=== PATIENT | female | born 1985 | race Caucasian/White ===

== ENCOUNTER 2018-09-14 18:51 | Emergency (ER) | payer OTHER ==
[2018-09-14 20:11] LABS: Urine Blood 1+ (NEG); Urine Glucose NEGATIVE (NEG); Urine Protein 1+ (NEG); Urine Specific Gravity >1.030 (1.005-1.030)
--- NOTE | 2018-09-14 20:40 | EDPHYS ---
Physician Documentation [facility] Name: Obinna Villarreal Age: 32 yrs Sex: Female : 1985 Arrival Date: 09/14/2018 Time: 18:52 Bed 17 Private MD: Kishan De La Cruz ED Physician Cesar Rutledge HPI: 09/14 20:37 This 32 yrs old Female presents to ER via Ambulatory with complaints of roel Nausea/Vomiting, BODY ACHES. 20:37 The patient presents to the emergency department with nausea, vomiting. Onset: The roel symptoms/episode began/occurred 3 day(s) ago. Possible causes: unknown. The symptoms are aggravated by nothing. The symptoms are alleviated by nothing. Associated signs and symptoms: Pertinent positives: anorexia, nausea, vomiting. Severity of symptoms: At their worst the symptoms were mild moderate in the emergency department the symptoms are unchanged. The patient has not experienced similar symptoms in the past. 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 - Social history:: Smoking status: unknown. - Ebola Screening: : No symptoms or risks identified at this time. ROS: 20:37 Constitutional: Negative for fever, chills, and weight loss, Eyes: Negative for injury, roel pain, redness, and discharge, ENT: Negative for injury, pain, and discharge, Neck: Negative for injury, pain, and swelling, Cardiovascular: Negative for chest pain, palpitations, and edema, Respiratory: Negative for shortness of breath, cough, wheezing, and pleuritic chest pain, Back: Negative for injury and pain, : Negative for injury, bleeding, discharge, and swelling, MS/Extremity: Negative for injury and deformity, Skin: Negative for injury, rash, and discoloration, Neuro: Negative for headache, weakness, numbness, tingling, and seizure, Psych: Negative for depression, anxiety, suicide ideation, homicidal ideation, and hallucinations, Allergy/Immunology: Negative for hives, rash, and allergies, Endocrine: Negative for neck swelling, polydipsia, polyuria, polyphagia, and marked weight changes, Hematologic/Lymphatic: Negative for swollen nodes, abnormal bleeding, and unusual bruising. 20:37 Abdomen/GI: Positive for nausea and vomiting. Exam: 20:37 Constitutional: This is a well developed, well nourished patient who is awake, alert, roel and in no acute distress. Head/Face: Normocephalic, atraumatic. Eyes: Pupils equal round and reactive to light, extra-ocular motions intact. Lids and lashes normal. Conjunctiva and sclera are non-icteric and not injected. Cornea within normal limits. Periorbital areas with no swelling, redness, or edema. ENT: Nares patent. No nasal discharge, no septal abnormalities noted. Tympanic membranes are normal and external auditory canals are clear. Oropharynx with no redness, swelling, or masses, exudates, or evidence of obstruction, uvula midline. Mucous membranes moist. Neck: Trachea midline, no thyromegaly or masses palpated, and no cervical lymphadenopathy. Supple, full range of motion without nuchal rigidity, or vertebral point tenderness. No Meningismus. Chest/axilla: Normal chest wall appearance and motion. Nontender with no deformity. No lesions are appreciated. Cardiovascular: Regular rate and rhythm with a normal S1 and S2. No gallops, murmurs, or rubs. Normal PMI, no JVD. No pulse deficits. Respiratory: Lungs have equal breath sounds bilaterally, clear to auscultation and percussion. No rales, rhonchi or wheezes noted. No increased work of breathing, no retractions or nasal flaring. Abdomen/GI: Soft, non-tender, with normal bowel sounds. No distension or tympany. No guarding or rebound. No evidence of tenderness throughout. Back: No spinal tenderness. No costovertebral tenderness. Full range of motion. Skin: Warm, dry with normal turgor. Normal color with no rashes, no lesions, and no evidence of cellulitis. MS/ Extremity: Pulses equal, no cyanosis. Neurovascular intact. Full, normal range of motion. Neuro: Awake and alert, GCS 15, oriented to person, place, time, and situation. Cranial nerves II-XII grossly intact. Motor strength 5/5 in all extremities. Sensory grossly intact. Cerebellar exam normal. Normal gait. Psych: Awake, alert, with orientation to person, place and time. Behavior, mood, and affect are within normal limits. Vital Signs: 18:58 BP 132 / 97; Pulse 101; Resp 18; Temp 99(O); Pulse Ox 100% ; Weight 72.57 kg; Height 5 sv ft. 6 in. (167.64 cm); Pain 6/10; 20:30 BP 143 / 99; Pulse 98; Resp 20 S; Pulse Ox 99% on R/A; cc3 18:58 Body Mass Index 25.82 (72.57 kg, 167.64 cm) sv MDM: 19:07 Patient medically screened. [facility] 20:38 Data reviewed: vital signs, nurses notes, lab test result(s), Flu: negative urinalysis. [facility] 09/14 19:09 Order name: Flu [facility] 09/14 19:10 Order name: Influenza Screen (A ; Complete Time: 20:12 [facility] 09/14 19:35 Order name: Urine Dipstick--Ancillary (enter results) [facility] 09/14 19:35 Order name: Urine --Ancillary (enter results); Complete Time: 20:12 [facility] 09/14 19:09 Order name: Urine Dipstick-Ancillary (obtain specimen); Complete Time: 19:31 [facility] 09/14 19:09 Order name: Urine Test (obtain specimen); Complete Time: 19:31 [facility] Administered Medications: 20:50 Drug: Zofran 4 mg Route: PO; cc3 21:00 Follow up: Response: No adverse reaction cc3 20:50 Drug: Motrin 600 mg Route: PO; cc3 21:00 Follow up: Response: No adverse reaction 3 20:52 Drug: Tamiflu 75 mg Route: PO; cc3 21:00 Follow up: Response: No adverse reaction 3 Disposition: 09/14/18 20:40 Discharged to Home. Impression: Vomiting, Malaise and fatigue. - Condition is Stable. - Discharge Instructions: Nausea and Vomiting, Adult, Weakness, Nausea and Vomiting, Adult, [id number], Weakness, [id number]. - Prescriptions for Zofran 4 mg Oral Tablet - take 1 tablet by ORAL route every 12 hours As needed; 20 tablet. Tamiflu 75 mg Oral Capsule - take 1 tablet by ORAL route every 12 hours for 5 days; 10 tablet. - Medication Reconciliation Form, Thank You Letter, Antibiotic Education, Prescription Opioid Use, Work release form form. - Follow up: Kishan De La Cruz MD; When: 2 - 3 days; Reason: Recheck today's complaints, Continuance of care, Re-evaluation by your physician. - Problem is new. - Symptoms have improved. Signatures: Dispatcher [employer] Светлана Dave RN RN Cesar Mcgraw MD MD cha Cordel, Charlene cc3 Corrections: (The following items were deleted from the chart) 21:03 20:40 09/14/2018 20:40 Discharged to Home. Impression: Vomiting; Malaise and fatigue. cc3 Condition is Stable. Forms are Medication Reconciliation Form, Thank You Letter, Antibiotic Education, Prescription Opioid Use. Follow up: Kishan De La Cruz; When: 2 - 3 days; Reason: Recheck today's complaints, Continuance of care, Re-evaluation by your physician. Problem is new. Symptoms have improved. roel
--- NOTE | 2018-09-14 20:40 | ER ---
Nurse's Notes [facility] Name: Obinna Villarreal Age: 32 yrs Sex: Female : 1985 Arrival Date: 09/14/2018 Time: 18:52 Bed 17 Private MD: Kishan De La Cruz Diagnosis: Vomiting;Malaise and fatigue Presentation: 09/14 18:56 Presenting complaint: Patient states: nausea, carmen hip pain, back/neck/shoulder pain sv since this morning. Transition of care: patient was not received from another setting of care. Onset of symptoms was September 14, 2018. Care prior to arrival: None. 18:56 Method Of Arrival: Ambulatory sv 18:56 Acuity: HASEEB 3 sv 19:05 Risk Assessment: Do you want to hurt yourself or someone else? Patient reports no cc3 desire to harm self or others. Initial Sepsis Screen: Does the patient meet any 2 criteria? No. Patient's initial sepsis screen is negative. Does the patient have a suspected source of infection? No. Patient's initial sepsis screen is negative. Triage Assessment: 19:00 General: Appears in no apparent distress. uncomfortable, well developed, Behavior is sv calm, cooperative. Neuro: Level of Consciousness is awake, alert, obeys commands, Oriented to person, place, time, situation, Moves all extremities. Full function Gait is steady. Respiratory: Respiratory effort is even, unlabored, Respiratory pattern is regular, symmetrical. GI: Reports intolerance of fluids, intolerance of food, nausea, vomiting. 19:05 Pain: Complains of pain in generalized acute body pains. 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 - Social history:: Smoking status: unknown. - Ebola Screening: : No symptoms or risks identified at this time. Screenin:05 Abuse screen: Denies threats or abuse. Denies injuries from another. Nutritional cc3 screening: No deficits noted. Tuberculosis screening: No symptoms or risk factors identified. Fall Risk Ambulatory Aid- None/Bed Rest/Nurse Assist (0 pts). Gait- Normal/Bed Rest/Wheelchair (0 pts) Mental Status- Oriented to own ability (0 pts). Assessment: 20:15 Reassessment: Patient appears in no apparent distress at this time. Patient and/or cc3 family updated on plan of care and expected duration. Pain level reassessed. Patient is alert, oriented x 3, equal unlabored respirations, skin warm/dry/pink. 21:00 Reassessment: Patient appears in no apparent distress at this time. Patient and/or cc3 family updated on plan of care and expected duration. Pain level reassessed. Patient is alert, oriented x 3, equal unlabored respirations, skin warm/dry/pink. Dr. Rutledge discharged the patient home with prescription given. No IV cannula in situ. Patient left ER vitally stable and ambulatory with her . Vital Signs: 18:58 BP 132 / 97; Pulse 101; Resp 18; Temp 99(O); Pulse Ox 100% ; Weight 72.57 kg; Height 5 sv ft. 6 in. (167.64 cm); Pain 6/10; 20:30 BP 143 / 99; Pulse 98; Resp 20 S; Pulse Ox 99% on R/A; cc3 18:58 Body Mass Index 25.82 (72.57 kg, 167.64 cm) sv ED Course: 18:52 Patient arrived in ED. sb2 18:53 Kishan De La Cruz MD is Private Physician. sb2 18:57 Triage completed. sv 19:00 Arm band placed on. sv 19:03 Jesscia Salguero is Primary Nurse. cc3 19:05 Patient has correct armband on for positive identification. Bed in low position. Call cc3 light in reach. Side rails up X 1. Pulse ox on. NIBP on. 19:07 Cesar Rutledge MD is Attending Physician. roel 19:31 Urine collected: clean catch specimen, carlin colored, Flu and/or RSV swab sent to lab. cb2 20:39 Kishan De La Cruz MD is Referral Physician. roel 21:00 No provider procedures requiring assistance completed. Patient did not have IV access cc3 during this emergency room visit. Administered Medications: 20:50 Drug: Zofran 4 mg Route: PO; cc3 21:00 Follow up: Response: No adverse reaction cc3 20:50 Drug: Motrin 600 mg Route: PO; cc3 21:00 Follow up: Response: No adverse reaction cc3 20:52 Drug: Tamiflu 75 mg Route: PO; cc3 21:00 Follow up: Response: No adverse reaction cc3 Outcome: 20:40 Discharge ordered by . roel 21:00 Discharged to home ambulatory, with family. cc3 21:00 Condition: stable 21:00 Discharge instructions given to patient, family, Instructed on discharge instructions, follow up and referral plans. medication usage, Demonstrated understanding of instructions, follow-up care, medications, Prescriptions given X 2. 21:03 Patient left the ED. cc3 Signatures: Светлана Pereyra, YASMANY RN Cesar Mcgraw MD MD cha Bulan, Christian cb2 Billeau, Sheri sb2 Cordel, Charlene cc3
[2018-09-14] MEDS ORDERED: IBUPROFEN 400 MG TAB ONE (20:55)
[2018-09-14] MEDS ORDERED: OSELTAMIVIR 75 MG CAP ONE (20:55)
[2018-09-14] MEDS ORDERED: IBUPROFEN 200 MG TAB PO ONE (20:55)
[2018-09-14] MEDS ORDERED: ONDANSETRON 4 MG (ODT) TAB ONE (20:56)
== END 2018-09-14 21:03 | disposition home or self-care (01) ==
LOC: ER 18:51
DX: R11.2 Nausea with vomiting, unspecified (principal); R53.83 Other fatigue; R53.81 Other malaise
CPT/HCPCS: 81003; 81025; 87804; 99284